=== PATIENT | female | born 1930 | race Caucasian/White ===

== ENCOUNTER → 2017-06-07 14:46 | Outpatient (CLI) | payer MEDICARE, OTHER ==
[2016-03-25 12:29] VITALS: BMI 21.4
[~2017-06-07 14:46] MED LIST: BAYER CHEWABLE81 MG PO; CATAPRES0.1 MG PO; LEVOTHYROXINE50 MCG; MIRALAX17 GM PO; MULTIPLE VITAMI1 TA1 PO; NORVASC2.5 MG PO; PROTONIX40 MG PO; TEGRETOL200 MG PO
[2017-06-07 18:22] LABS: APPEARANCE HAZY (CLEAR); BILIRUBIN NEGATIVE (NEGATIVE); COLOR YELLOW (YELLOW); GLUCOSE NEGATIVE (NEGATIVE); KETONE NEGATIVE (NEGATIVE); LEUKOCYTE ESTERASE 2+ (NEGATIVE); NITRITE NEGATIVE (NEGATIVE); PROTEIN TRACE mg/dL (NEGATIVE); SPECIFIC GRAVITY 1.015 (1.005-1.020); UROBILINOGEN NORMAL (NORMAL)
[2017-06-07 18:23] LABS: BACTERIA MANY /hpf (NONE SEEN); EPITHELIAL CELLS 0-5 /hpf (0-5); RED CELLS - URINE 0-5 /hpf (0-5); WHITE CELLS - URINE >50 /hpf (0-5)
== END | disposition home or self-care (01) ==
LOC: D.LABREF 14:46
PROVIDERS: Urology
DX: N39.0 Urinary tract infection, site not specified (principal)

== ENCOUNTER → 2017-07-05 19:47 | Outpatient (CLI) | payer MEDICARE, OTHER ==
[2016-03-25 12:29] VITALS: BMI 21.4
[2017-07-05 20:17] LABS: APPEARANCE CLEAR (CLEAR); BILIRUBIN NEGATIVE (NEGATIVE); COLOR DK YELLOW (YELLOW); GLUCOSE NEGATIVE (NEGATIVE); KETONE NEGATIVE (NEGATIVE); LEUKOCYTE ESTERASE 2+ (NEGATIVE); NITRITE NEGATIVE (NEGATIVE); PROTEIN 1+ mg/dL (NEGATIVE); SPECIFIC GRAVITY 1.015 (1.005-1.020); UROBILINOGEN NORMAL (NORMAL)
[2017-07-05 20:18] LABS: EPITHELIAL CELLS 0-5 /hpf (0-5); WHITE CELLS - URINE >50 /hpf (0-5)
[2017-07-05 20:19] LABS: BACTERIA FEW /hpf (NONE SEEN)
== END | disposition home or self-care (01) ==
LOC: D.LABREF 19:47
PROVIDERS: Internal Medicine
DX: N39.0 Urinary tract infection, site not specified (principal)

== ENCOUNTER 2017-09-20 08:00 | Day surgery (SDC) | payer MEDICARE, OTHER ==
[2017-09-19 15:57] LABS: ANION GAP 15.4 mmol/L (8-16); CALCIUM 9.1 mg/dL (8.5-10.1); CARBON DIOXIDE 26.9 mmol/L (21.0-32.0); CREATININE - SERUM 1.6 mg/dL (0.6-1.3); POTASSIUM - SERUM 4.3 mmol/L (3.5-5.1)
[2017-09-19 16:02] LABS: BASOPHILS 0.2 % (0-2); EOSINOPHILS 0.9 % (0-7); HEMATOCRIT 31.9 % (36.0-48.0); HEMOGLOBIN 10.7 g/dL (12-16); IMMATURE GRANULOCYTES 0.2 % (0-5); LYMPHOCYTES 27.5 % (15-50); MCH 34.4 pg (26.0-34.0); MCHC 33.5 g/dL (31.0-37.0); MCV 102.6 fL (80.0-100.0); MEAN PLATELET VOLUME 8.9 fL (7.4-10.4); MONOCYTES 8.8 % (2-11); NEUTROPHILS 62.4 % (40-80); PLATELET COUNT 242 10x3/uL (130-400); RBC 3.11 10x6/uL (4.00-5.40); RDW 12.4 % (11.5-14.5); WBC 6.4 10x3/uL (4.8-10.8)
[2017-09-19 16:13] LABS: APTT 25.1 SECONDS (22.8-39.4); INR 0.85 (0.85-1.17); PROTIME 11.4 SECONDS (11.6-15.0)
[~2017-09-20 08:00] MED LIST changes: +ACETAMINOPHEN500 M1 PO; +GLUCOPHAGE500 MG PO; +LEVOTHYROXINE50 MCG PO; +LISINOPRIL10 MG PO
[2017-09-20 11:01] VITALS: BP 195/82; BMI 24.6
--- NOTE | 2017-09-20 14:40 | NUR ---
SURGERY CX DUE TO BOTOX NOT ORDERED , PT RETURNED TO ROOM FROM OR, IV DC WITH CATHER TIP INTACT, OFFICE WILL CALLED PT WHEN RESCHUDLE
== END 2017-09-20 23:59 | disposition home or self-care (01) ==
LOC: D.OPS 08:00 → D.PAN 13:00 → D.OPS 13:30
PROVIDERS: Anesthesiology
DX: N39.41 Urge incontinence (principal); Z01.810 Encounter for preprocedural cardiovascular examination; Z01.811 Encounter for preprocedural respiratory examination; Z01.812 Encounter for preprocedural laboratory examination; Z53.9 Procedure and treatment not carried out, unspecified reason

== ENCOUNTER 2018-11-08 20:36 | Emergency (ER) | payer MEDICARE, OTHER ==
[~2018-11-08] VITALS: Ht 152.4 cm; Wt 59.1 kg
[2018-11-08 21:05] VITALS: Ht 152.4 cm; Wt 59.1 kg
[2018-11-09 03:00] VITALS: BP 142/57
== END 2018-11-09 03:44 | disposition home or self-care (01) ==
LOC: D.ER 20:36
DX: R55 Syncope and collapse (principal); Z86.73 Personal history of transient ischemic attack (TIA), and cerebral infarction without residual deficits; E11.9 Type 2 diabetes mellitus without complications

== ENCOUNTER 2019-02-05 16:15 | Emergency (ER) | payer MEDICARE, OTHER ==
[~2019-02-05] VITALS: Ht 152.4 cm; Wt 54.5 kg
[2019-02-05 16:30] VITALS: Ht 152.4 cm; Wt 54.5 kg
[2019-02-05] MEDS ORDERED: ZIPSOR25 MG PO (20:27)
[2019-02-05 20:35] VITALS: BP 142/98
== END 2019-02-05 20:35 | disposition home or self-care (01) ==
LOC: D.ER 16:15
DX: M19.90 Unspecified osteoarthritis, unspecified site (principal); M54.16 Radiculopathy, lumbar region

== ENCOUNTER 2019-02-11 10:05 | Inpatient (IN) | payer MEDICARE, OTHER ==
[~2019-02-11] VITALS: Ht 152.4 cm; Wt 57.2 kg
[~2019-02-11 10:05] MED LIST changes: +ZIPSOR25 MG PO
--- NOTE | 2019-02-11 10:16 | NUR ---
ARRIVED VIA EMS FROM HOME. EMS REPORTS PT SEEN AT THIS ER TUESDAY, GIVEN RX FOR DICLOFENAC 25MG PO BID. PHARMACY UNABLE TO FILL EXACT DOSAGE. RX CHANGED TO DICLOFENAC 50MG...30 PILLS DISPENSED. UNSURE IF PT WAS TO TAKE 1/2 PILL BID PT TOOK 1 TAB 50MG AND NAUSEA/VOMITING STARTED. PT POOR HISTORIAN. SPOUSE ON THIER WAY.
[2019-02-11 11:46] LABS: APPEARANCE HAZY (CLEAR); BILIRUBIN NEGATIVE (NEGATIVE); COLOR YELLOW (YELLOW); GLUCOSE NEGATIVE (NEGATIVE); KETONE NEGATIVE (NEGATIVE); NITRITE NEGATIVE (NEGATIVE); PROTEIN NEGATIVE (NEGATIVE); SPECIFIC GRAVITY 1.015 (1.005-1.020); UROBILINOGEN NORMAL (NORMAL)
[2019-02-11 11:48] LABS: BACTERIA MANY /hpf (NONE SEEN); EPITHELIAL CELLS 0-5 /hpf (0-5); RED CELLS - URINE 0-5 /hpf (0-5)
[2019-02-11 12:26] LABS: BASOPHILS 0.1 % (0-2); EOSINOPHILS 1.2 % (0-7); HEMATOCRIT 31.7 % (36.0-48.0); HEMOGLOBIN 10.4 g/dL (12-16); IMMATURE GRANULOCYTES 0.1 % (0-5); LYMPHOCYTES 10.7 % (15-50); MCH 33.4 pg (26.0-34.0); MCHC 32.8 g/dL (31.0-37.0); MCV 101.9 fL (80.0-100.0); MEAN PLATELET VOLUME 8.8 fL (7.4-10.4); NEUTROPHILS 75.9 % (40-80); PLATELET COUNT 285 10x3/uL (130-400); RBC 3.11 10x6/uL (4.00-5.40); RDW 13.1 % (11.5-14.5); WBC 7.8 10x3/uL (4.8-10.8)
[2019-02-11 12:42] LABS: ALBUMIN 2.9 g/dL (3.4-5.0); ANION GAP 15.5 mmol/L (8-16); BILIRUBIN - TOTAL 0.94 mg/dL (0.2-1.3); CALCIUM 8.9 mg/dL (8.5-10.1); CARBON DIOXIDE 25.3 mmol/L (21.0-32.0); CREATININE - SERUM 1.9 mg/dL (0.6-1.3); POTASSIUM - SERUM 4.8 mmol/L (3.5-5.1)
[2019-02-11 13:09] VITALS: BP 148/72
[2019-02-11 14:04] VITALS: BP 152/78
--- NOTE | 2019-02-11 14:37 | NUR ---
ROCEPHIN FINISHED PRIOR TO TRANSPORT
[2019-02-11 15:57] VITALS: BP 170/60; BMI 24.6
[2019-02-11 16:00] VITALS: BP 166/52
--- NOTE | 2019-02-11 20:00 | NUR ---
PT LYING IN BED, NO SIGNS OF DISTRESS. PT CONFUSED TO TIME AND SITUATION. KEEPS ASKING IF HER SON IS HERE, TOLD PT SEVERAL TIMES SON HAS NOT BEEN HERE. IV LEFT AC INFUSING NS @ 100. GENERALIZED SWELLING TO BILAT LOWER LEGS. SCDS IN PLACE. MAGDALENA ON. DENIES PAIN AT THIS TIME. BS 109, NO COVERAGE. DENIES NEEDS. CL IN REACH, WILL CONTINUE TO MONITOR
--- NOTE | 2019-02-11 22:00 | NUR ---
UPON ENTERING PT ROOM, NOTICED WET BLANKET W/ BLOOD ON IT. FOUND PT HAD PULLED IV OUT W/ CATHETER INTACT. PT STATES SHE DID NOT KNOW HOW IT CAME OUT. RESITED 22G IV X2 ATTEMPTS TO RIGHT AC. MAGDALENA ON. WILL CONT TO MONITOR
[2019-02-12] VITALS: BP 196/55
[2019-02-12 03:00] VITALS: BP 170/65
[2019-02-12 05:27] LABS: BASOPHILS 0.1 % (0-2); HEMATOCRIT 27.9 % (36.0-48.0); HEMOGLOBIN 9.2 g/dL (12-16); IMMATURE GRANULOCYTES 0.3 % (0-5); LYMPHOCYTES 18.7 % (15-50); MCH 33.2 pg (26.0-34.0); MCV 100.7 fL (80.0-100.0); MEAN PLATELET VOLUME 8.6 fL (7.4-10.4); NEUTROPHILS 66.9 % (40-80); PLATELET COUNT 251 10x3/uL (130-400); RBC 2.77 10x6/uL (4.00-5.40); WBC 6.7 10x3/uL (4.8-10.8)
[2019-02-12 05:39] LABS: ALBUMIN 2.7 g/dL (3.4-5.0); ANION GAP 17.9 mmol/L (8-16); BILIRUBIN - TOTAL 0.49 mg/dL (0.2-1.3); CALCIUM 8.3 mg/dL (8.5-10.1); CREATININE - SERUM 1.5 mg/dL (0.6-1.3); POTASSIUM - SERUM 4.9 mmol/L (3.5-5.1); PROTEIN - SERUM 6.4 g/dL (6.4-8.2)
--- NOTE | 2019-02-12 08:00 | NUR ---
MORNING ASSESSMENT COMPLETE. SEE ASSESSMENT FLOWHSEET FOR FURTHER DETAILS. PT LYING IN BED RESTING COMFORTABLY. DENIES NEEDS AT THIS TIME. CL IN REACH. SIDE RAILS UP X3 FOR PATIENT SAFETY
[2019-02-12 09:23] VITALS: BP 175/73
[2019-02-12 10:56] VITALS: BMI 24.6
--- NOTE | 2019-02-12 12:01 | NUR ---
PT RIPPED OUT PIV TO R AC. RESITED TO R HAND. TOLERATED WELL. AT BEDSIDE.
[2019-02-12 12:43] VITALS: Ht 152.4 cm; Wt 57.2 kg
[2019-02-12 13:49] VITALS: BP 148/61
[2019-02-12 18:34] VITALS: BP 193/63
--- NOTE | 2019-02-12 19:25 | NUR ---
ENTERED ROOM, 22G USED IV CATHETER ON BEDSIDE TABLE, NO IV PRESENT IN RIGHT FOREARM. BRUISE AND PUNCTURE SITE VISIBLE WITH NO BANDAGE, BUT NO BLOOD OR BLEEDING NOTED. ASKED PT IF SHE TOOK AND OUT, BUT SHE BEGAN TALK TO ANNALEE, WHO WAS NOT ACTUALLY THERE. PT WOULD POINT AND STATE HER OR SON WAS RIGHT THERE WHEN ATTEMPTING TO REORIENT. PT ASKS HOW I GOT INTO HER HOUSE AND WHO LET ME IN, AND BEGAN TO PANIC CALLING FOR ANNALEE WHEN I TRIED TO TELL HER SHE WAS IN THE HOSPITAL. SUGGESTED SHE CALL ANNALEE AT HOME AND SHE AGREED. CALLED PTs IN ROOM FOR HER AND SHE SPOKE WITH HIM, STILL VERY CONFUSED THOUGH. WILL CONTINUE TO MONITOR.
[2019-02-12 21:09] VITALS: BP 150/96
--- NOTE | 2019-02-13 05:00 | NUR ---
I have reviewed this patient and I concur with the Shift Assessment completed by the Licensed Practical Nurse today this shift.
[2019-02-13 05:09] VITALS: BP 187/89
[2019-02-13 06:11] LABS: BASOPHILS 0.3 % (0-2); HEMATOCRIT 27.6 % (36.0-48.0); HEMOGLOBIN 8.8 g/dL (12-16); IMMATURE GRANULOCYTES 0.4 % (0-5); LYMPHOCYTES 19.1 % (15-50); MCH 32.4 pg (26.0-34.0); MCHC 31.9 g/dL (31.0-37.0); MCV 101.5 fL (80.0-100.0); MEAN PLATELET VOLUME 9.1 fL (7.4-10.4); MONOCYTES 12.8 % (2-11); NEUTROPHILS 66.4 % (40-80); PLATELET COUNT 243 10x3/uL (130-400); RBC 2.72 10x6/uL (4.00-5.40); RDW 13.1 % (11.5-14.5); WBC 7.8 10x3/uL (4.8-10.8)
[2019-02-13 06:29] LABS: ALBUMIN 2.6 g/dL (3.4-5.0); ANION GAP 17.7 mmol/L (8-16); BILIRUBIN - TOTAL 0.35 mg/dL (0.2-1.3); CALCIUM 8.5 mg/dL (8.5-10.1); CARBON DIOXIDE 19.9 mmol/L (21.0-32.0); CREATININE - SERUM 1.7 mg/dL (0.6-1.3); POTASSIUM - SERUM 4.6 mmol/L (3.5-5.1); PROTEIN - SERUM 6.5 g/dL (6.4-8.2)
[2019-02-13 07:31] LABS: CA125 5.3 U/mL (0.0-38.1); CEA 2.5 ng/mL (0.0-4.7)
--- NOTE | 2019-02-13 08:00 | NUR ---
MORNING ASSESSMENT COMPLETE. SEE ASSESSMENT FLOWSHEET FOR FURTHER DETAILS. PT LYING IN BED. NO SIGNS OF DISCOMFORT OR DISTRESS. DENIES NEEDS AT THIS TIME. CL IN REACH
[2019-02-13 08:09] VITALS: BP 191/70
[2019-02-13 12:21] VITALS: BP 142/106
[2019-02-13 12:25] VITALS: BP 186/77
--- NOTE | 2019-02-13 15:43 | MORECARE ---
CASE MANAGEMENT DISCHARGE SUMMARY PATIENT: HANSEL MULLEN UNIT: [id number] ADM DATE: 02/12/19 AGE: 88 : 30 SEX: F ROOM/BED: D.2201 AUTHOR: DAVE MAHONEY PHYSICIAN: REFERRING PHYSICIAN: EMMANUEL RICARDO MD DATE OF SERVICE: 02/13/19 Discharge Plan Patient Name: HANSEL MULLEN Facility: [facility]:[place] : 1930 Planned Disposition: Long Term Facility Anticipated Discharge Date: Discharge Date: Expected LOS: Initial Reviewer: [email or web address] Initial Review Date: 02/11/2019 Generated: 02/13/19 4:43 pm Patient Name: HANSEL MULLEN Page [id number] at 1543 All edits/amendments must be made on the electronic document DICTATION DATE: 02/13/19 154 MANAGER MARKET INTELLIGENCE: KATIE 02/13/19 154 RPT#: [id number] DC DATE: STATUS: ADM IN [facility] [address] [place] [address] END OF REPORT
--- NOTE | 2019-02-13 15:52 | MORECARE ---
CASE MANAGEMENT DISCHARGE SUMMARY PATIENT: HANSEL MULLEN UNIT: [id number] ADM DATE: 02/12/19 AGE: 88 : 30 SEX: F ROOM/BED: D.2201 AUTHOR: DAVE MAHONEY PHYSICIAN: REFERRING PHYSICIAN: EMMANUEL RICARDO MD DATE OF SERVICE: 02/13/19 Discharge Plan Patient Name: HANSEL MULLEN Facility: [facility]:[place] : 1930 Planned Disposition: Longterm Facility Anticipated Discharge Date: Discharge Date: Expected LOS: Initial Reviewer: [email or web address] Initial Review Date: 02/11/2019 Generated: 02/13/19 4:51 pm DCPIA - Discharge Planning Initial Assessment Updated by [email or web address]: Brooklyn Crews on 02/13/19 3:44 pm * Is the patient Alert and Oriented? Yes * How many steps to enter\exit or inside your home? 0/RAMP * PCP PULLIG * Pharmacy [facility] * Preadmission Environment Home with Family * ADLs Partial Dependent * Partial ADLs (Assistance needed) Ambulation * Equipment Bedside Commode Rolling Walker Shower Chair Walker Wheelchair * List name and contact numbers for known caregivers / representatives who currently or will assist patient after discharge: ANNALEE () [phone] * Verbal permission to speak to the caregivers and representatives has been obtained from the patient. N/A * Community resources currently utilized None * Additional services required to return to the preadmission environment? Yes * Can the patient safely return to the preadmission environment? No * Has this patient been hospitalized within the prior 30 days at any hospital? No Last DP export: 02/13/19 2:43 p Patient Name: HANSEL MULLEN Page 23929 at 1552 All edits/amendments must be made on the electronic document DICTATION DATE: 02/13/191550 ALPINE PATROLLER: KATIE 02/13/191550 RPT#: [id number] DC DATE: STATUS: ADM IN [facility] [address] [place] [address] END OF REPORT
[2019-02-13 16:00] LABS: CA 27-29 13.9 U/mL (0.0-38.6)
--- NOTE | 2019-02-13 16:14 | MORECARE ---
CASE MANAGEMENT DISCHARGE SUMMARY PATIENT: HANSEL MULLEN UNIT: [id number] ADM DATE: 02/12/19 AGE: 88 : 30 SEX: F ROOM/BED: D.2201 AUTHOR: DENZELDOC PHYSICIAN: REFERRING PHYSICIAN: EMMANUEL RICARDO MD DATE OF SERVICE: 02/13/19 Discharge Plan Patient Name: HANSEL MULLEN Facility: [facility]:[place] : 1930 Planned Disposition: Fdc Facility Anticipated Discharge Date: Discharge Date: Expected LOS: Initial Reviewer: [email or web address] Initial Review Date: 02/11/2019 Generated: 02/13/19 5:14 pm Comments DCP- Discharge Planning Updated by [email or web address]: Brooklyn Crews on 02/13/19 3:[address] Patient Name: HANSEL MULLEN Admission Status: ER Accout number: [id number] Admission Date: 02-12-2019 : 1930 Admission Diagnosis: Attending: EMMANUEL RICARDO Current LOS: 1 Anticipated DC Date: Planned Disposition: Fdc Facility Primary Insurance: MEDICARE A & B Discharge Planning Comments: CM met with patient's to assess discharge planning needs. Patient lives in [facility] with her where she was independent with her care, her stated this past week she has been hurting to bad to walk and has been using a wheelchair. She has a BSC, shower chair, walker and wheelchair at home. Her stated that he would like her to go to [facility] when she is able to be discharged for therapy. He does not think that he will be able to care for her at this time at home. I will send a referral to [facility]'s. CM will continue to follow and assist with DC planning Direct Marketing Executive: Brooklyn Crews DCPIA - Discharge Planning Initial Assessment Updated by [email or web address]: Brooklyn Crews on 02/13/19 3:44 pm * Is the patient Alert and Oriented? Yes * How many steps to enter\exit or inside your home? 0/RAMP * PCP PULLIG * Pharmacy [facility] * Preadmission Environment Home with Family * ADLs Partial Dependent * Partial ADLs (Assistance needed) Ambulation * Equipment Bedside Commode Rolling Walker Shower Chair Walker Wheelchair * List name and contact numbers for known caregivers / representatives who currently or will assist patient after discharge: ANNALEE () [phone] * Verbal permission to speak to the caregivers and representatives has been obtained from the patient. N/A * Community resources currently utilized None * Additional services required to return to the preadmission environment? Yes * Can the patient safely return to the preadmission environment? No * Has this patient been hospitalized within the prior 30 days at any hospital? No Last DP export: 02/13/19 2:51 p Patient Name: HANSEL MULLEN Page 42938 at 1614 All edits/amendments must be made on the electronic document DICTATION DATE: 02/13/191613 ADZ WORKER: KATIE 02/13/191613 RPT#: [id number] DC DATE: STATUS: ADM IN [facility] [address] [place] [address] END OF REPORT
--- NOTE | 2019-02-13 16:27 | MORECARE ---
CASE MANAGEMENT DISCHARGE SUMMARY PATIENT: HANSEL MULLEN UNIT: [id number] ADM DATE: 02/12/19 AGE: 88 : 30 SEX: F ROOM/BED: D.2201 AUTHOR: DENZELDOC PHYSICIAN: REFERRING PHYSICIAN: EMMANUEL RICARDO MD DATE OF SERVICE: 02/13/19 Discharge Plan Patient Name: HANSEL MULLEN Facility: [facility]:[place] : 1930 Planned Disposition: Half-Way Facility Anticipated Discharge Date: Discharge Date: Expected LOS: Initial Reviewer: [email or web address] Initial Review Date: 02/11/2019 Generated: 02/13/19 5:27 pm Comments DCP- Discharge Planning Updated by [email or web address]: Brooklyn Crews on 02/13/19 3:[address] Patient Name: HANSEL MULLEN Admission Status: ER Accout number: [id number] Admission Date: 02-12-2019 : 1930 Admission Diagnosis: Attending: EMMANUEL RICARDO Current LOS: 1 Anticipated DC Date: Planned Disposition: Half-Way Facility Primary Insurance: MEDICARE A & B Discharge Planning Comments: CM met with patient's to assess discharge planning needs. Patient lives in [facility] with her where she was independent with her care, her stated this past week she has been hurting to bad to walk and has been using a wheelchair. She has a BSC, shower chair, walker and wheelchair at home. Her stated that he would like her to go to [facility] when she is able to be discharged for therapy. He does not think that he will be able to care for her at this time at home. I will send a referral to [facility]'s. CM will continue to follow and assist with DC planning Keyboarding Clerk: Brooklyn Crews DCPIA - Discharge Planning Initial Assessment Updated by [email or web address]: Brooklyn Crews on 02/13/19 3:44 pm * Is the patient Alert and Oriented? Yes * How many steps to enter\exit or inside your home? 0/RAMP * PCP PULLIG * Pharmacy [facility] * Preadmission Environment Home with Family * ADLs Partial Dependent * Partial ADLs (Assistance needed) Ambulation * Equipment Bedside Commode Rolling Walker Shower Chair Walker Wheelchair * List name and contact numbers for known caregivers / representatives who currently or will assist patient after discharge: ANNALEE () [phone] * Verbal permission to speak to the caregivers and representatives has been obtained from the patient. N/A * Community resources currently utilized None * Additional services required to return to the preadmission environment? Yes * Can the patient safely return to the preadmission environment? No * Has this patient been hospitalized within the prior 30 days at any hospital? No External Providers External Provider: [facility] Next Contact Date: Service Request Date: Service Type: Resolution: Reviewer: Comments: Last DP export: 02/13/19 3:14 p Patient Name: HANSEL MULLEN Page [id number] at 1627 All edits/amendments must be made on the electronic document DICTATION DATE: 02/13/191625 MARINE CARGO SPECIALIST: KATIE 02/13/191625 RPT#: [id number] DC DATE: STATUS: ADM IN [facility] [address] [place] [address] END OF REPORT
[2019-02-13 16:46] VITALS: BP 163/51
--- NOTE | 2019-02-13 19:20 | NUR ---
PT ALERT AND CONFUSED. ORIENTED TO SELF AND PLACE BUT RAMBLES AT TIMES. INCONTINENT. PROVIDED PERICARE AND CHANGED BEDDING. PT ROLLED BETTER TODAY THAN LAST NIGHT. PT WINCED AT TURNING BUT TOLERATED MUCH BETTER. FSBS 152 PT REFUSED INSULIN. IV TO THE LEFT HAND PATENT. NO DISTRESS NOTED AT THIS TIME. YELLOW GOWN, YELLOW BRACELET, AND MAGDALENA MAT IN PLACE. SIDE RAILS UP X 2. CALL LIGHT IN REACH. CPOC.
[2019-02-13 21:05] VITALS: BP 165/60
--- NOTE | 2019-02-14 02:02 | NUR ---
I have reviewed this patient and I concur with the Shift Assessment completed by the Licensed Practical Nurse today this shift.
[2019-02-14 04:43] VITALS: BP 162/59
[2019-02-14 05:08] LABS: BASOPHILS 0.1 % (0-2); HEMATOCRIT 26.2 % (36.0-48.0); HEMOGLOBIN 8.6 g/dL (12-16); IMMATURE GRANULOCYTES 0.3 % (0-5); LYMPHOCYTES 23.4 % (15-50); MCHC 32.8 g/dL (31.0-37.0); MCV 100.4 fL (80.0-100.0); MEAN PLATELET VOLUME 8.9 fL (7.4-10.4); MONOCYTES 13.4 % (2-11); NEUTROPHILS 60.8 % (40-80); PLATELET COUNT 240 10x3/uL (130-400); RBC 2.61 10x6/uL (4.00-5.40); WBC 7.6 10x3/uL (4.8-10.8)
[2019-02-14 05:32] LABS: ALBUMIN 2.3 g/dL (3.4-5.0); ANION GAP 16.1 mmol/L (8-16); BILIRUBIN - TOTAL 0.2 mg/dL (0.2-1.3); CALCIUM 8.1 mg/dL (8.5-10.1); CARBON DIOXIDE 20.9 mmol/L (21.0-32.0); CREATININE - SERUM 1.5 mg/dL (0.6-1.3)
--- NOTE | 2019-02-14 08:00 | NUR ---
MORNING ASSESSMENT COMPLETE. SEE ASSESSMENT FLOWSHEET FOR FURTHER DETAILS. PT LYING IN BED. DENIES NEEDS AT THIS TIME. CL IN REACH. SIDE RAILS UP X3 FOR PATIENT SAFETY
[2019-02-14 08:47] VITALS: BP 192/73
[2019-02-14 08:50] LABS: % SATURATION 30 % (15-55); IRON 61 ug/dl (35-150); TOTAL IRON BIND CAPACITY 202 ug/dl (260-445); UNSAT IRON BIND CAPACITY 141 ug/dl (150-375)
[2019-02-14 12:17] LABS: UPE RAND - ALBUMIN 37.5 % (()); UPE RAND - ALPHA 1 GLOBULIN 8.6 % (()); UPE RAND - ALPHA 2 GLOBULIN 20.1 % (()); UPE RAND - BETA GLOBULIN 13.6 % (()); UPE RAND - GAMMA GLOBULIN 20.1 % (())
--- NOTE | 2019-02-14 12:27 | NUR ---
Rehab Prescreening Consult recieved and the chart has been reviewed. According to the PT eval patient does not ambulate uses a w/c and only transfers. Today notes indicate she is on hold. At this time she is to low level for the ARU which reauires 3 hrs of therapy 5-6 days a week. Left a V/M with the CM re this descision. Stella Alberto RN Clinical Liaison, Rehab
[2019-02-14 12:49] VITALS: BP 149/76
[2019-02-14 14:19] LABS: SPE - ALPHA-1 GLOBULIN 0.3 g/dL (0.0-0.4); SPE - ALPHA-2 GLOBULIN 0.9 g/dL (0.4-1.0); SPE - BETA GLOBULIN 1.1 g/dL (0.7-1.3); SPE - GAMMA GLOBULIN 0.7 g/dL (0.4-1.8); SPE - M-SPIKE Not Observed g/dL (Not Observed)
[2019-02-14 16:48] VITALS: BP 152/59
[2019-02-14 21:03] VITALS: BP 160/61
--- NOTE | 2019-02-15 04:43 | NUR ---
PT IN BED IN LOW FOWLERS POSITION. REPIRATIONS EVEN AND UNLABORED. VITAL SIGNS STABLE AND AFEBRILE. NO VISUAL CUES OF DISTRESS NOTED. DENIES ANY OTHER NEEDS AT THIS TIME. BED LOW, SIDE RAILS UP X2. CALL LIGHT IN REACH. WILL CONTINUE TO MONITOR.
[2019-02-15 04:45] VITALS: BP 137/59
[2019-02-15 06:08] LABS: BASOPHILS 0.2 % (0-2); EOSINOPHILS 2.6 % (0-7); HEMATOCRIT 25.4 % (36.0-48.0); HEMOGLOBIN 8.4 g/dL (12-16); IMMATURE GRANULOCYTES 0.3 % (0-5); LYMPHOCYTES 22.9 % (15-50); MCH 32.7 pg (26.0-34.0); MCHC 33.1 g/dL (31.0-37.0); MCV 98.8 fL (80.0-100.0); MEAN PLATELET VOLUME 8.9 fL (7.4-10.4); MONOCYTES 14.2 % (2-11); NEUTROPHILS 59.8 % (40-80); PLATELET COUNT 242 10x3/uL (130-400); RBC 2.57 10x6/uL (4.00-5.40); RDW 12.9 % (11.5-14.5); WBC 6.2 10x3/uL (4.8-10.8)
[2019-02-15 06:28] LABS: ALBUMIN 2.4 g/dL (3.4-5.0); ANION GAP 16.6 mmol/L (8-16); BILIRUBIN - TOTAL 0.26 mg/dL (0.2-1.3); CALCIUM 8.5 mg/dL (8.5-10.1); CARBON DIOXIDE 21.3 mmol/L (21.0-32.0); CREATININE - SERUM 1.4 mg/dL (0.6-1.3); POTASSIUM - SERUM 4.9 mmol/L (3.5-5.1)
[2019-02-15 07:30] VITALS: BP 180/92
--- NOTE | 2019-02-15 07:30 | NUR ---
MANUAL BP IS 180/92. WILL MONITOR.
--- NOTE | 2019-02-15 08:30 | MORECARE ---
CASE MANAGEMENT DISCHARGE SUMMARY PATIENT: HANSEL MULLEN UNIT: [id number] ADM DATE: 02/12/19 AGE: 88 : 30 SEX: F ROOM/BED: D.2201 AUTHOR: DENZELDOC PHYSICIAN: REFERRING PHYSICIAN: EMMANUEL RICARDO MD DATE OF SERVICE: 02/15/19 Discharge Plan Patient Name: HANSEL MULLEN Facility: [facility]:[place] : 1930 Planned Disposition: Fci Facility Anticipated Discharge Date: Discharge Date: Expected LOS: Initial Reviewer: [email or web address] Initial Review Date: 02/11/2019 Generated: 02/15/19 9:29 am Comments DCP- Discharge Planning Updated by [id number]: Brooklyn Crews on 02/13/19 3:[address] Patient Name: HANSEL MULLEN Admission Status: ER Accout number: [id number] Admission Date: 02-12-2019 : 1930 Admission Diagnosis: Attending: EMMANUEL RICARDO Current LOS: 1 Anticipated DC Date: Planned Disposition: Fci Facility Primary Insurance: MEDICARE A & B Discharge Planning Comments: CM met with patient's to assess discharge planning needs. Patient lives in [facility] with her where she was independent with her care, her stated this past week she has been hurting to bad to walk and has been using a wheelchair. She has a BSC, shower chair, walker and wheelchair at home. Her stated that he would like her to go to [facility] when she is able to be discharged for therapy. He does not think that he will be able to care for her at this time at home. I will send a referral to [facility]'s. CM will continue to follow and assist with DC planning Blasting Entryman: Brooklyn Crews DCPIA - Discharge Planning Initial Assessment Updated by [email or web address]: Brooklyn Crews on 02/13/19 3:44 pm * Is the patient Alert and Oriented? Yes * How many steps to enter\exit or inside your home? 0/RAMP * PCP PULLIG * Pharmacy [facility] * Preadmission Environment Home with Family * ADLs Partial Dependent * Partial ADLs (Assistance needed) Ambulation * Equipment Bedside Commode Rolling Walker Shower Chair Walker Wheelchair * List name and contact numbers for known caregivers / representatives who currently or will assist patient after discharge: ANNALEE () [phone] * Verbal permission to speak to the caregivers and representatives has been obtained from the patient. N/A * Community resources currently utilized None * Additional services required to return to the preadmission environment? Yes * Can the patient safely return to the preadmission environment? No * Has this patient been hospitalized within the prior 30 days at any hospital? No External Providers External Provider: [facility] Next Contact Date: Service Request Date: Service Type: Resolution: Reviewer: Comments: Last DP export: 02/13/19 3:27 p Patient Name: HANSEL MULLEN Page [id number] at 0830 All edits/amendments must be made on the electronic document DICTATION DATE: 02/15/19828 LIBRARIAN HEAD: KATIE 02/15/19828 RPT#: [id number] DC DATE: STATUS: ADM IN [facility] [address] [place] [address] END OF REPORT
--- NOTE | 2019-02-15 08:36 | MORECARE ---
CASE MANAGEMENT DISCHARGE SUMMARY PATIENT: HANSEL MULLEN UNIT: [id number] ADM DATE: 02/12/19 AGE: 88 : 30 SEX: F ROOM/BED: D.2201 AUTHOR: DAVE MAHONEY PHYSICIAN: REFERRING PHYSICIAN: EMMANUEL RICARDO MD DATE OF SERVICE: 02/15/19 Discharge Plan Patient Name: HANSEL MULLEN Facility: [facility]:[place] : 1930 Planned Disposition: Residential Facility Anticipated Discharge Date: Discharge Date: Expected LOS: Initial Reviewer: [email or web address] Initial Review Date: 02/11/2019 Generated: 02/15/19 9:36 am Comments DCP- Discharge Planning Updated by [email or web address]: Brooklyn Crews on 02/15/19 7:[address] KIANNA SENT OFF, IMM SERVED AND EXPLAINED TO PATIENT. SHE IS TEARFUL, BUT SAID SHE KNOWS THAT SHE NEEDS TO GET STRONGER. SHE STATED THAT SHE HAD A GOOD NIGHT DCP- Discharge Planning Updated by [email or web address]: Brooklyn Crews on 02/13/19 3:[address] Patient Name: HANSEL MULLEN Admission Status: ER Accout number: [id number] Admission Date: 02-12-2019 : 1930 Admission Diagnosis: Attending: EMMANUEL RICARDO Current LOS: 1 Anticipated DC Date: Planned Disposition: Residential Facility Primary Insurance: MEDICARE A & B Discharge Planning Comments: CM met with patient's to assess discharge planning needs. Patient lives in [facility] with her where she was independent with her care, her stated this past week she has been hurting to bad to walk and has been using a wheelchair. She has a BSC, shower chair, walker and wheelchair at home. Her stated that he would like her to go to [facility] when she is able to be discharged for therapy. He does not think that he will be able to care for her at this time at home. I will send a referral to [facility]'s. CM will continue to follow and assist with DC planning Track Worker: Brooklyn Crews DCPIA - Discharge Planning Initial Assessment Updated by [email or web address]: Brooklyn Crews on 02/13/19 3:44 pm * Is the patient Alert and Oriented? Yes * How many steps to enter\exit or inside your home? 0/RAMP * PCP ART * Pharmacy [facility] * Preadmission Environment Home with Family * ADLs Partial Dependent * Partial ADLs (Assistance needed) Ambulation * Equipment Bedside Commode Rolling Walker Shower Chair Walker Wheelchair * List name and contact numbers for known caregivers / representatives who currently or will assist patient after discharge: ANNALEE () [phone] * Verbal permission to speak to the caregivers and representatives has been obtained from the patient. N/A * Community resources currently utilized None * Additional services required to return to the preadmission environment? Yes * Can the patient safely return to the preadmission environment? No * Has this patient been hospitalized within the prior 30 days at any hospital? No Coverage Notice Reviewer: [email or web address] - Brooklyn Crews Notice Issued Date-Time: 02/15/2019 8:00 Notice Type: IM Discharge Notice Notice Delivered To: Patient Relationship to Patient: Blast Furnace Keeper Helper Name: Delivery Method: HAND - Hand Delivered Ashley Days: Prior Verbal Notification: Recipient Understood Notice: Yes Recipient Signature: Yes Med Rec Note Co-signed by Attending: Coverage Notice Comment: Last DP export: 02/15/19 7:30 a Patient Name: HANSEL MULLEN Page [phone] at 0836 All edits/amendments must be made on the electronic document DICTATION DATE: 02/15/19 0836 AUTO FORMER MACHINE OPERATOR: KATIE 02/15/19 0836 RPT#: [id number] DC DATE: STATUS: ADM IN [facility] [address] [place] [address] END OF REPORT
[2019-02-15 08:45] VITALS: BP 180/92
--- NOTE | 2019-02-15 08:47 | NUR ---
BP CONTINUES ELEVATED AT 180/92. GIVEN 10 MG APRESOLINE SLOW IVP FOR SAME. WILL MONITOR. IV SITED TO LEFT WRIST AFTER ONE ATTEMPT WITH 22G. AWAKE AND ALERT. ORIENTED X3. NO C/O AT THIS TIME. LUNGS ARE CLEAR BILATERALLY, NO COUGH NOTED. SKIN IS INTACT WITHOUT REDNESS. SITTING UP IN BEDE EATING BREAKFAST. DENIES NEEDS.
--- NOTE | 2019-02-15 09:58 | NUR ---
NUTRITION F/U PT REPORTS +BM. TOLERATING AHA DIET 25% INTAKE BREAKFAST. PT STATES SHE NEVER EATS A LOT OF BREAKFAST. WILL CONTINUE TO PROVIDE DIET, MONITOR INTAKE. RD FOLLOWING
--- NOTE | 2019-02-15 10:45 | MORECARE ---
CASE MANAGEMENT DISCHARGE SUMMARY PATIENT: HANSEL MULLEN UNIT: [id number] ADM DATE: 02/12/19 AGE: 88 : 30 SEX: F ROOM/BED: D.2201 AUTHOR: DENZELDOC PHYSICIAN: REFERRING PHYSICIAN: EMMANUEL RICARDO MD DATE OF SERVICE: 02/15/19 Discharge Plan Patient Name: HANSEL MULLEN Facility: [facility]:[place] : 1930 Planned Disposition: Long Term Facility Anticipated Discharge Date: Discharge Date: Expected LOS: Initial Reviewer: [id number] Initial Review Date: 02/11/2019 Generated: 02/15/19 11:45 am Comments DCP- Discharge Planning Updated by [email or web address]: Brooklyn Crews on 02/15/19 9:[address] SPOKE WITH KIESHA AT [facility] AND THEY ARE FULL AND WILL NOT BE ABLE TO ACCEPT THE PATIENT, SPOKE WITH PATIENT AND AND THEIR SECOND CHOICE IS [facility] REFERRAL SENT TO [facility] AND SPOKE WITH KEITH. CM WILL CONTINUE TO FOLLOW AND ASSIST WITH DC PLANNING DCP- Discharge Planning Updated by [email or web address]: Brooklyn Eleonora on 02/15/19 7:[address] KIANNA SENT OFF, IMM SERVED AND EXPLAINED TO PATIENT. SHE IS TEARFUL, BUT SAID SHE KNOWS THAT SHE NEEDS TO GET STRONGER. SHE STATED THAT SHE HAD A GOOD NIGHT DCP- Discharge Planning Updated by [email or web address]: Brooklyn Eleonora on 02/13/19 3:[address] Patient Name: HANSEL MULLEN Admission Status: ER Accout number: [id number] Admission Date: 02-12-2019 : 1930 Admission Diagnosis: Attending: EMMANUEL RICARDO Current LOS: 1 Anticipated DC Date: Planned Disposition: Long Term Facility Primary Insurance: MEDICARE A & B Discharge Planning Comments: CM met with patient's to assess discharge planning needs. Patient lives in [place] with her where she was independent with her care, her stated this past week she has been hurting to bad to walk and has been using a wheelchair. She has a BSC, shower chair, walker and wheelchair at home. Her stated that he would like her to go to [facility] when she is able to be discharged for therapy. He does not think that he will be able to care for her at this time at home. I will send a referral to [facility]. CM will continue to follow and assist with DC planning Cemetery Keeper: Brooklyn Crews DCPIA - Discharge Planning Initial Assessment Updated by [email or web address]: Brooklyn Crews on 02/13/19 3:44 pm * Is the patient Alert and Oriented? Yes * How many steps to enter\exit or inside your home? 0/RAMP * PCP PULLIG * Pharmacy [facility] [place] * Preadmission Environment Home with Family * ADLs Partial Dependent * Partial ADLs (Assistance needed) Ambulation * Equipment Bedside Commode Rolling Walker Shower Chair Walker Wheelchair * List name and contact numbers for known caregivers / representatives who currently or will assist patient after discharge: ANNALEE (AUGUST) [phone] * Verbal permission to speak to the caregivers and representatives has been obtained from the patient. N/A * Community resources currently utilized None * Additional services required to return to the preadmission environment? Yes * Can the patient safely return to the preadmission environment? No * Has this patient been hospitalized within the prior 30 days at any hospital? No External Providers External Provider: [facility] Next Contact Date: Service Request Date: Service Type: Resolution: Reviewer: Comments: Coverage Notice Reviewer: [id number] - Brooklyn Crews Notice Issued Date-Time: 02/15/2019 8:00 Notice Type: IM Discharge Notice Notice Delivered To: Patient Relationship to Patient: Operational Risk Analyst Name: Delivery Method: HAND - Hand Delivered Ashley Days: Prior Verbal Notification: Recipient Understood Notice: Yes Recipient Signature: Yes Med Rec Note Co-signed by Attending: Coverage Notice Comment: Last DP export: 02/15/19 7:36 a Patient Name: HANSEL MULLEN Page [id number] at 1045 All edits/amendments must be made on the electronic document DICTATION DATE: 02/15/19 1044 POURER CRANE LADLE: KATIE 02/15/19 1044 RPT#: [id number] DC DATE: STATUS: ADM IN [facility] [address] [place] [address] END OF REPORT
[2019-02-15 10:51] VITALS: BP 156/82
--- NOTE | 2019-02-15 10:51 | NUR ---
BP 156/82. AT BEDSIDE. DENIES NEEDS.
--- NOTE | 2019-02-15 12:39 | NUR ---
OT NOTE: REQUIRED EXTENDED TMT TIME ON THIS DATE. PT AGREEABLE TO SIT UP ON EDGE OF BED AND ABLE TO PERFORM WITH MIN/MOD ASSIST. NOTICED THAT PT HAD HAD A SMALL BM IN THE BED. ENCOURAGED TO AMB TO BATHROOM. PT PERFORMED SIT TO STAND WITH MIN ASSIST; MOD ASSIST WITH AMBULATION APPROX 10 FT FROM BED TO BATHROOM. UNSTEADY GAIT AND POOR STANDING BALANCE. DURING PROCESS, PT HAD NUMEROUS BMs ON THE FLOOR GETTING TO BATHROOM, BUT WAS UNAWARE UNTIL SHE SAT DOWN ON TOILET..(PT REQUIRED MAX ASSIST TO TRANSFER TO TOILET). PT VERY APPOLOGETIC REGARDING ACCIDENT BUT EXPLAINED THAT IT WAS OK AND WE WOULD GET HER CLEANED UP. PT REQUIRED MAX ASSIST FOR PERINEAL CARE; MAX ASSIST TO ASHELY GOWN, MAX ASSIST TO ASHELY SOCKS, SET UP TO CLEAN HANDS WITH WASH CLOTH. REQUIRED SEVERAL ATTEMPTS TO AMB BACK TO BED PT WAS FATIGUED AND STATED THAT SHE COULD NOT MAKE IT. ABLE TO AMB WITH MAX ASSIST X 2 BACK TO BED; BED MOB WITH MOD ASSIST; PT HAD ANOTHER BM WHILE GETTING INTO BED AND LINENS AND GOWN HAD TO BE CHANGED AGAIN. TAY ALTMAN, OTR/L
--- NOTE | 2019-02-15 12:56 | MORECARE ---
CASE MANAGEMENT DISCHARGE SUMMARY PATIENT: HANSEL MULLEN UNIT: [id number] ADM DATE: 02/12/19 AGE: 88 : 30 SEX: F ROOM/BED: D.2201 AUTHOR: DENZELDOC PHYSICIAN: REFERRING PHYSICIAN: EMMANUEL RICARDO MD DATE OF SERVICE: 02/15/19 Discharge Plan Patient Name: HANSEL MULLEN Facility: [facility]:[place] : 1930 Planned Disposition: Halfway Facility Anticipated Discharge Date: Discharge Date: Expected LOS: Initial Reviewer: [email or web address] Initial Review Date: 02/11/2019 Generated: 02/15/19 1:56 pm Comments DCP- Discharge Planning Updated by [email or web address]: Brooklyn Eleonora on 02/15/19 9:[address] SPOKE WITH KIESHA AT [facility] AND THEY ARE FULL AND WILL NOT BE ABLE TO ACCEPT THE PATIENT, SPOKE WITH PATIENT AND AND THEIR SECOND CHOICE IS [facility] REFERRAL SENT TO [facility] AND SPOKE WITH KEITH. CM WILL CONTINUE TO FOLLOW AND ASSIST WITH DC PLANNING DCP- Discharge Planning Updated by [email or web address]: Brooklyn Eleonora on 02/15/19 7:[address] KIANNA SENT OFF, IMM SERVED AND EXPLAINED TO PATIENT. SHE IS TEARFUL, BUT SAID SHE KNOWS THAT SHE NEEDS TO GET STRONGER. SHE STATED THAT SHE HAD A GOOD NIGHT DCP- Discharge Planning Updated by [email or web address]: Brooklyn Figueroaken on 02/13/19 3:[address] Patient Name: HANSEL MULLEN Admission Status: ER Accout number: [id number] Admission Date: 02-12-2019 : 1930 Admission Diagnosis: Attending: EMMANUEL RICARDO Current LOS: 1 Anticipated DC Date: Planned Disposition: Halfway Facility Primary Insurance: MEDICARE A & B Discharge Planning Comments: CM met with patient's to assess discharge planning needs. Patient lives in [place] with [place] where she was independent with her care, her stated this past week she has been hurting to bad to walk and has been using a wheelchair. She has a BSC, shower chair, walker and wheelchair at home. Her stated that he would like her to go to [facility] when she is able to be discharged for therapy. He does not think that he will be able to care for her at this time at home. I will send a referral to [facility]. CM will continue to follow and assist with DC planning Tire Changer Aircraft: Brooklyn Crews DCPIA - Discharge Planning Initial Assessment Updated by [email or web address]: Brooklyn Crews on 02/13/19 3:44 pm * Is the patient Alert and Oriented? Yes * How many steps to enter\exit or inside your home? 0/RAMP * PCP PULLIG * Pharmacy [facility] [place] * Preadmission Environment Home with Family * ADLs Partial Dependent * Partial ADLs (Assistance needed) Ambulation * Equipment Bedside Commode Rolling Walker Shower Chair Walker Wheelchair * List name and contact numbers for known caregivers / representatives who currently or will assist patient after discharge: ANNALEE () [phone] * Verbal permission to speak to the caregivers and representatives has been obtained from the patient. N/A * Community resources currently utilized None * Additional services required to return to the preadmission environment? Yes * Can the patient safely return to the preadmission environment? No * Has this patient been hospitalized within the prior 30 days at any hospital? No Coverage Notice Reviewer: [id number] - Brooklyn Crews Notice Issued Date-Time: 02/15/2019 8:00 Notice Type: IM Discharge Notice Notice Delivered To: Patient Relationship to Patient: Finished Metal Repairer Name: Delivery Method: HAND - Hand Delivered Ashley Days: Prior Verbal Notification: Recipient Understood Notice: Yes Recipient Signature: Yes Med Rec Note Co-signed by Attending: Coverage Notice Comment: Last DP export: 02/15/19 9:45 a Patient Name: HANSEL MULLEN Page 57469 at 1256 All edits/amendments must be made on the electronic document DICTATION DATE: 02/15/19 1256 TESTING TECH: KATIE 02/15/19 1256 RPT#: [id number] DC DATE: STATUS: ADM IN [facility] [address] [place] [address] END OF REPORT
[2019-02-15 13:37] VITALS: BP 135/69
[2019-02-15] MEDS ORDERED: Levaquin PO (13:57)
[2019-02-15] MEDS ORDERED: HYDROCODON-ACE1 EAC7 PO (13:57)
[2019-02-15] MEDS ORDERED: FLORAJEN3 CAPS460 MG PO (13:57)
[2019-02-15] MEDS ORDERED: COLACE100 MG PO (13:57)
--- NOTE | 2019-02-15 14:19 | MORECARE ---
CASE MANAGEMENT DISCHARGE SUMMARY PATIENT: HANSEL MULLEN UNIT: [id number] ADM DATE: 02/12/19 AGE: 88 : 30 SEX: F ROOM/BED: D.2201 AUTHOR: DENZEL,DOC PHYSICIAN: REFERRING PHYSICIAN: EMMANUEL RICARDO MD DATE OF SERVICE: 02/15/19 Discharge Plan Patient Name: HANSEL MULLEN Facility: [facility]:[place] : 1930 Planned Disposition: Correction Facility Anticipated Discharge Date: Discharge Date: Expected LOS: Initial Reviewer: [email or web address] Initial Review Date: 02/11/2019 Generated: 02/15/19 3:19 pm Comments DCP- Discharge Planning Updated by [id number]: Brooklyn Crews on 02/15/19 1:[address] Patient will be discharging to [facility] today to a skilled bed. They will be picking her up at 4:30 this afternoon DCP- Discharge Planning Updated by [id number]: Brooklyn Crews on 02/15/19 9:[address] SPOKE WITH KIESHA AT [facility] AND THEY ARE FULL AND WILL NOT BE ABLE TO ACCEPT THE PATIENT, SPOKE WITH PATIENT AND AND THEIR SECOND CHOICE IS [facility] REFERRAL SENT TO [facility] AND SPOKE WITH KEITH. CM WILL CONTINUE TO FOLLOW AND ASSIST WITH DC PLANNING DCP- Discharge Planning Updated by [email or web address]: Brooklyn Crews on 02/15/19 7:[address] KIANNA SENT OFF, IMM SERVED AND EXPLAINED TO PATIENT. SHE IS TEARFUL, BUT SAID SHE KNOWS THAT SHE NEEDS TO GET STRONGER. SHE STATED THAT SHE HAD A GOOD NIGHT DCP- Discharge Planning Updated by [email or web address]: Brooklyn Crews on 02/13/19 3:[address] Patient Name: HANSEL MULLEN Admission Status: ER Accout number: [id number] Admission Date: 02-12-2019 : 1930 Admission Diagnosis: Attending: EMMANUEL RICARDO Current LOS: 1 Anticipated DC Date: Planned Disposition: [facility] Facility Primary Insurance: MEDICARE A & B Discharge Planning Comments: CM met with patient's to assess discharge planning needs. Patient lives in [place] with [place] where she was independent with her care, her stated this past week she has been hurting to bad to walk and has been using a wheelchair. She has a BSC, shower chair, walker and wheelchair at home. Her stated that he would like her to go to [facility] when she is able to be discharged for therapy. He does not think that he will be able to care for her at this time at home. I will send a referral to [facility]'s. CM will continue to follow and assist with DC planning Single Needle Tufting Machine Operator: Brooklyn Crews DCPIA - Discharge Planning Initial Assessment Updated by [email or web address]: Brooklyn Crews on 02/13/19 3:44 pm * Is the patient Alert and Oriented? Yes * How many steps to enter\exit or inside your home? 0/RAMP * PCP PULLIG * Pharmacy [facility] [place] * Preadmission Environment Home with Family * ADLs Partial Dependent * Partial ADLs (Assistance needed) Ambulation * Equipment Bedside Commode Rolling Walker Shower Chair Walker Wheelchair * List name and contact numbers for known caregivers / representatives who currently or will assist patient after discharge: ANNALEE () [phone] * Verbal permission to speak to the caregivers and representatives has been obtained from the patient. N/A * Community resources currently utilized None * Additional services required to return to the preadmission environment? Yes * Can the patient safely return to the preadmission environment? No * Has this patient been hospitalized within the prior 30 days at any hospital? No Coverage Notice Reviewer: [id number] - Brooklyn Crews Notice Issued Date-Time: 02/15/2019 8:00 Notice Type: IM Discharge Notice Notice Delivered To: Patient Relationship to Patient: Credit Administration Officer Name: Delivery Method: HAND - Hand Delivered Ashley Days: Prior Verbal Notification: Recipient Understood Notice: Yes Recipient Signature: Yes Med Rec Note Co-signed by Attending: Coverage Notice Comment: Last DP export: 02/15/19 11:56 a Patient Name: HANSEL MULLEN Page [id number] at 1419 All edits/amendments must be made on the electronic document DICTATION DATE: 02/15/19 141 CONSUMER LENDING MANAGER: KATIE 02/15/191418 RPT#: [id number] DC DATE: STATUS: ADM IN [facility] [address] [place] [address] END OF REPORT
--- NOTE | 2019-02-15 14:28 | MORECARE ---
CASE MANAGEMENT DISCHARGE SUMMARY PATIENT: HANSEL MULLEN UNIT: [id number] ADM DATE: 02/12/19 AGE: 88 : 30 SEX: F ROOM/BED: D.2201 AUTHOR: DENZELDOC PHYSICIAN: REFERRING PHYSICIAN: EMMANUEL RICARDO MD DATE OF SERVICE: 02/15/19 Discharge Plan Patient Name: HANSEL MULLEN Facility: [facility]:[place] : 1930 Planned Disposition: [facility] Facility Anticipated Discharge Date: Discharge Date: Expected LOS: Initial Reviewer: [email or web address] Initial Review Date: 02/11/2019 Generated: 02/15/19 3:28 pm Comments DCP- Discharge Planning Updated by [email or web address]: Brooklyn Crews on 02/15/19 1:[address] Keith with [facility] called and stated that they are have van trouble and her stated that he will drive her to them. is in agreement to drive her and Kevin with PT will help assist patient to the car. CM will continue to follow and assist with DC planning DCP- Discharge Planning Updated by [email or web address]: Brooklyn Crews on 02/15/19 1:[address] Patient will be discharging to [facility] today to a skilled bed. They will be picking her up at 4:30 this afternoon DCP- Discharge Planning Updated by [email or web address]: Brooklyn Crews on 02/15/19 9:[address] SPOKE WITH KIESHA AT [facility] AND THEY ARE FULL AND WILL NOT BE ABLE TO ACCEPT THE PATIENT, SPOKE WITH PATIENT AND AND THEIR SECOND CHOICE IS [facility] REFERRAL SENT TO [facility] AND SPOKE WITH KEITH. CM WILL CONTINUE TO FOLLOW AND ASSIST WITH DC PLANNING DCP- Discharge Planning Updated by [email or web address]: Brooklyn Crews on 02/15/19 7:[address] KIANNA SENT OFF, IMM SERVED AND EXPLAINED TO PATIENT. SHE IS TEARFUL, BUT SAID SHE KNOWS THAT SHE NEEDS TO GET STRONGER. SHE STATED THAT SHE HAD A GOOD NIGHT DCP- Discharge Planning Updated by [email or web address]: Brooklyn Crews on 02/13/19 3:[address] Patient Name: HANSEL MULLEN Admission Status: ER Accout number: [id number] Admission Date: 02-12-2019 : 1930 Admission Diagnosis: Attending: EMMANUEL RICARDO Current LOS: 1 Anticipated DC Date: Planned Disposition: [facility] Facility Primary Insurance: MEDICARE A & B Discharge Planning Comments: CM met with patient's to assess discharge planning needs. Patient lives in [place] with [place] where she was independent with her care, her stated this past week she has been hurting to bad to walk and has been using a wheelchair. She has a BSC, shower chair, walker and wheelchair at home. Her stated that he would like her to go to [facility] when she is able to be discharged for therapy. He does not think that he will be able to care for her at this time at home. I will send a referral to [facility]'s. CM will continue to follow and assist with DC planning Farm Supervisor: Brooklyn Crews DCPIA - Discharge Planning Initial Assessment Updated by [email or web address]: Brooklyn Crews on 02/13/19 3:44 pm * Is the patient Alert and Oriented? Yes * How many steps to enter\exit or inside your home? 0/RAMP * PCP PULLIG * Pharmacy [facility] [place] * Preadmission Environment Home with Family * ADLs Partial Dependent * Partial ADLs (Assistance needed) Ambulation * Equipment Bedside Commode Rolling Walker Shower Chair Walker Wheelchair * List name and contact numbers for known caregivers / representatives who currently or will assist patient after discharge: ANNALEE () [phone] * Verbal permission to speak to the caregivers and representatives has been obtained from the patient. N/A * Community resources currently utilized None * Additional services required to return to the preadmission environment? Yes * Can the patient safely return to the preadmission environment? No * Has this patient been hospitalized within the prior 30 days at any hospital? No Coverage Notice Reviewer: [id number] - Brooklyn Crews Notice Issued Date-Time: 02/15/2019 8:00 Notice Type: IM Discharge Notice Notice Delivered To: Patient Relationship to Patient: Medical Research Scientist Name: Delivery Method: HAND - Hand Delivered Ashley Days: Prior Verbal Notification: Recipient Understood Notice: Yes Recipient Signature: Yes Med Rec Note Co-signed by Attending: Coverage Notice Comment: Last DP export: 02/15/19 1:19 p Patient Name: HANSEL MULLEN Page [phone] at 1428 All edits/amendments must be made on the electronic document DICTATION DATE: 02/15/191427 DRILL PRESSER: KATIE 02/15/191427 RPT#: [id number] DC DATE: STATUS: ADM IN [facility] [address] [place] [address] END OF REPORT
--- NOTE | 2019-02-15 15:22 | NUR ---
DISCHARGED TO [facility] WITH . DISCHARGE INSTRUCTIONS GIVEN BOTH VERBALLY AND WRITTEN. ALL QUESTIONS ANSWERED. PATIENT AND FAMILY VERBALIZED UNDERSTANDING OF SAME. ALL BELONGINGS WITH PATIENT. SL TO LEFT HAND D/C WITH CATHETER INTACT. REPORT CALLED TO RENEE ATKINS RN AT [facility]. ALL QUESTIONS ANSWERED.
--- NOTE | 2019-02-15 15:36 | MORECARE ---
CASE MANAGEMENT DISCHARGE SUMMARY PATIENT: HANSEL MULLEN UNIT: [id number] ADM DATE: 02/12/19 AGE: 88 : 30 SEX: F ROOM/BED: D.2201 AUTHOR: DENZELDOC PHYSICIAN: REFERRING PHYSICIAN: EMAMNUEL RICARDO MD DATE OF SERVICE: 02/15/19 Discharge Plan Patient Name: HANSEL MULLEN Facility: [facility]:[place] : 1930 Planned Disposition: Residential Facility Anticipated Discharge Date: Discharge Date: 02/15/2019 Expected LOS: Initial Reviewer: [email or web address] Initial Review Date: 02/11/2019 Generated: 02/15/19 4:36 pm Comments DCP- Discharge Planning Updated by [email or web address]: Brooklyn Crews on 02/15/19 1:[address] Keith with [facility] called and stated that they are have van trouble and her stated that he will drive her to them. is in agreement to drive her and Kevin with PT will help assist patient to the car. CM will continue to follow and assist with DC planning DCP- Discharge Planning Updated by [email or web address]: Brooklyn Crews on 02/15/19 1:[address] Patient will be discharging to [facility] today to a skilled bed. They will be picking her up at 4:30 this afternoon DCP- Discharge Planning Updated by [email or web address]: Brooklyn Crews on 02/15/19 9:[address] SPOKE WITH KIESHA AT [facility] AND THEY ARE FULL AND WILL NOT BE ABLE TO ACCEPT THE PATIENT, SPOKE WITH PATIENT AND AND THEIR SECOND CHOICE IS [facility] REFERRAL SENT TO [facility] AND SPOKE WITH KEITH. CM WILL CONTINUE TO FOLLOW AND ASSIST WITH DC PLANNING DCP- Discharge Planning Updated by [email or web address]: Brooklyn Crews on 02/15/19 7:[address] KIANNA SENT OFF, IMM SERVED AND EXPLAINED TO PATIENT. SHE IS TEARFUL, BUT SAID SHE KNOWS THAT SHE NEEDS TO GET STRONGER. SHE STATED THAT SHE HAD A GOOD NIGHT DCP- Discharge Planning Updated by [email or web address]: Brooklyn Crews on 02/13/19 3:[address] Patient Name: HANSEL MULLEN Admission Status: ER Accout number: [id number] Admission Date: 02-12-2019 : 1930 Admission Diagnosis: Attending: EMMANUEL RICARDO Current LOS: 1 Anticipated DC Date: Planned Disposition: Residential Facility Primary Insurance: MEDICARE A & B Discharge Planning Comments: CM met with patient's to assess discharge planning needs. Patient lives in [place] with her where she was independent with her care, her stated this past week she has been hurting to bad to walk and has been using a wheelchair. She has a BSC, shower chair, walker and wheelchair at home. Her stated that he would like her to go to [facility] when she is able to be discharged for therapy. He does not think that he will be able to care for her at this time at home. I will send a referral to [facility]'s. CM will continue to follow and assist with DC planning Autism Teacher: Brooklyn Crews DCPIA - Discharge Planning Initial Assessment Updated by [email or web address]: Brooklyn Crews on 02/13/19 3:44 pm * Is the patient Alert and Oriented? Yes * How many steps to enter\exit or inside your home? 0/RAMP * PCP PULLIG * Pharmacy [facility] [place] * Preadmission Environment Home with Family * ADLs Partial Dependent * Partial ADLs (Assistance needed) Ambulation * Equipment Bedside Commode Rolling Walker Shower Chair Walker Wheelchair * List name and contact numbers for known caregivers / representatives who currently or will assist patient after discharge: ANNALEE () [phone] * Verbal permission to speak to the caregivers and representatives has been obtained from the patient. N/A * Community resources currently utilized None * Additional services required to return to the preadmission environment? Yes * Can the patient safely return to the preadmission environment? No * Has this patient been hospitalized within the prior 30 days at any hospital? No Coverage Notice Reviewer: [id number] - Brooklyn Crews Notice Issued Date-Time: 02/15/2019 8:00 Notice Type: IM Discharge Notice Notice Delivered To: Patient Relationship to Patient: Senior Web Designer Name: Delivery Method: HAND - Hand Delivered Ashley Days: Prior Verbal Notification: Recipient Understood Notice: Yes Recipient Signature: Yes Med Rec Note Co-signed by Attending: Coverage Notice Comment: Last DP export: 02/15/19 1:28 p Patient Name: HANSEL MULLEN Page [phone] at 1536 All edits/amendments must be made on the electronic document DICTATION DATE: 02/15/19 153 SPEECH THERAPIST: KATIE 02/15/19 153 RPT#: [id number] DC DATE:02/15/19 STATUS: DIS IN [facility] [address] [facility] [place] [address] END OF REPORT
--- NOTE | 2019-02-16 16:40 | MORECARE ---
CASE MANAGEMENT DISCHARGE SUMMARY PATIENT: HANSEL MULLEN UNIT: [id number] ADM DATE: 02/12/19 AGE: 88 : 30 SEX: F ROOM/BED: D.2201 AUTHOR: DENZEL,DOC PHYSICIAN: REFERRING PHYSICIAN: EMMANUEL RICARDO MD DATE OF SERVICE: 02/16/19 Discharge Plan Patient Name: HANSEL MULLEN Facility: [facility]:[place] : 1930 Planned Disposition: Residential Facility Anticipated Discharge Date: Discharge Date: 02/15/2019 Expected LOS: 0 Initial Reviewer: [email or web address] Initial Review Date: 02/11/2019 Generated: 02/16/19 5:40 pm Comments DCP- Discharge Planning Updated by [email or web address]: Brookyln Crews on 02/15/19 1:[address] Keith with [facility] called and stated that they are have van trouble and her stated that he will drive her to them. is in agreement to drive her and Kevin with PT will help assist patient to the car. CM will continue to follow and assist with DC planning DCP- Discharge Planning Updated by [email or web address]: Brooklyn Crews on 02/15/19 1:[address] Patient will be discharging to [facility] today to a skilled bed. They will be picking her up at 4:30 this afternoon DCP- Discharge Planning Updated by [email or web address]: Brooklyn Crews on 02/15/19 9:[address] SPOKE WITH KIESHA AT [facility] AND THEY ARE FULL AND WILL NOT BE ABLE TO ACCEPT THE PATIENT, SPOKE WITH PATIENT AND AND THEIR SECOND CHOICE IS [facility] REFERRAL SENT TO [facility] AND SPOKE WITH KEITH. CM WILL CONTINUE TO FOLLOW AND ASSIST WITH DC PLANNING DCP- Discharge Planning Updated by [email or web address]: Brooklyn Crews on 02/15/19 7:[address] [facility] SENT OFF, IMM SERVED AND EXPLAINED TO PATIENT. SHE IS TEARFUL, BUT SAID SHE KNOWS THAT SHE NEEDS TO GET STRONGER. SHE STATED THAT SHE HAD A GOOD NIGHT DCP- Discharge Planning Updated by [id number]: Brooklyn Crews on 02/13/19 3:[address] Patient Name: HANSEL MULLEN Admission Status: ER Accout number: [id number] Admission Date: 02-12-2019 : 1930 Admission Diagnosis: Attending: EMMANUEL RICARDO Current LOS: 1 Anticipated DC Date: Planned Disposition: Residential Facility Primary Insurance: MEDICARE A & B Discharge Planning Comments: CM met with patient's to assess discharge planning needs. Patient lives in [place] with her where she was independent with her care, her stated this past week she has been hurting to bad to walk and has been using a wheelchair. She has a BSC, shower chair, walker and wheelchair at home. Her stated that he would like her to go to [facility] when she is able to be discharged for therapy. He does not think that he will be able to care for her at this time at home. I will send a referral to [facility]'s. CM will continue to follow and assist with DC planning Pilot Fuel Engineer: Brooklyn Crews DCPIA - Discharge Planning Initial Assessment Updated by [email or web address]: Brooklyn Crwes on 02/13/19 3:44 pm * Is the patient Alert and Oriented? Yes * How many steps to enter\exit or inside your home? 0/RAMP * PCP [facility] * Pharmacy [facility] * Preadmission Environment Home with Family * ADLs Partial Dependent * Partial ADLs (Assistance needed) Ambulation * Equipment Bedside Commode Rolling Walker Shower Chair Walker Wheelchair * List name and contact numbers for known caregivers / representatives who currently or will assist patient after discharge: ANNALEE () [phone] * Verbal permission to speak to the caregivers and representatives has been obtained from the patient. N/A * Community resources currently utilized None * Additional services required to return to the preadmission environment? Yes * Can the patient safely return to the preadmission environment? No * Has this patient been hospitalized within the prior 30 days at any hospital? No Coverage Notice Reviewer: [id number] - Brooklyn Crews Notice Issued Date-Time: 02/15/2019 8:00 Notice Type: IM Discharge Notice Notice Delivered To: Patient Relationship to Patient: Wallpaper Embosser Helper Name: Delivery Method: HAND - Hand Delivered Ashley Days: Prior Verbal Notification: Recipient Understood Notice: Yes Recipient Signature: Yes Med Rec Note Co-signed by Attending: Coverage Notice Comment: Last DP export: 02/15/19 2:36 p Patient Name: HANSEL MULLEN Page [id number] at 1640 All edits/amendments must be made on the electronic document DICTATION DATE: 02/16/19 1640 SEMIAUTOMATIC STITCHER OPERATOR: KATIE 02/16/19 1640 RPT#: [id number] DC DATE:02/15/19 STATUS: DIS IN [facility] [address] [place] [address] END OF REPORT
== END 2019-02-15 15:25 | DRG 543 ==
LOC: D.ER 10:05 → D.EDHOLD 13:29 → OBSVTIME 13:29 → D.MS 13:29
PROVIDERS: Emergency Medicine; Internal Medicine Hematology & Oncology; ADMIT Internal Medicine Nephrology; ATTEND Internal Medicine Nephrology
DX: M84.451A Pathological fracture, right femur, initial encounter for fracture (principal); N17.9 Acute kidney failure, unspecified; N39.0 Urinary tract infection, site not specified; E11.40 Type 2 diabetes mellitus with diabetic neuropathy, unspecified; E03.9 Hypothyroidism, unspecified; I10 Essential (primary) hypertension; F03.90 Unspecified dementia, unspecified severity, without behavioral disturbance, psychotic disturbance, mood disturbance, and anxiety; F41.9 Anxiety disorder, unspecified; E86.0 Dehydration; M89.9 Disorder of bone, unspecified; E11.65 Type 2 diabetes mellitus with hyperglycemia; D64.9 Anemia, unspecified; Z86.73 Personal history of transient ischemic attack (TIA), and cerebral infarction without residual deficits